=== PATIENT | female | born 1985 | race Hispanic/Latino ===

== ENCOUNTER 2022-08-28 07:20 | Day surgery (SDC) | payer BC ==
[2022-08-26 11:32] LABS: BASOPHILS % (AUTO) 0.7 % (0.0-5.0); EOSINOPHILS % (AUTO) 0.6 % (0.0-8.0); HEMATOCRIT 40.8 % (36-48); LYMPHOCYTES % (AUTO) 24.2 % (21.0-51.0); MEAN CORPUSCULAR HGB CONC 31.9 g/dL (32.0-36.0); MEAN CORPUSCULAR VOLUME 94.2 fL (79-99); MONOCYTES % (AUTO) 4.1 % (3.0-13.0); PLATELET COUNT (AUTO) 367 K/uL (130-400); RED BLOOD CELL COUNT(AUTO) 4.33 MIL/uL (4.00-5.50); RED CELL DISTRIBUTION WIDTH 13.3 % (11.0-15.5); WHITE BLOOD COUNT (AUTO) 10.2 K/uL (4.8-10.8)
[2022-08-26 11:37] VITALS: BP 111/61
[2022-08-28] VITALS (14 sets, daily range): BP systolic 78–101; BP diastolic 39–62
[~2022-08-28] VITALS: Ht 165.1 cm; Wt 73.9 kg
[~2022-08-28 07:20] MED LIST: BUPIVACAINE/PF 0.5% 10ML VIAL ONE; DEXAMETHASONE SOD PHOSPHATE 10MG/ML 1ML VIAL ONE; LIDOCAINE PF 100MG/5ML (2%) SYRINGE 5ML ONE; MIDAZOLAM HCL 1 MG/ML 2ML VIAL ONE; SUCCINYLCHOLINE 200MG/10ML SYR ONE
[2022-08-28] MEDS ORDERED: PROPOFOL 10 MG/ML 20ML VIAL IV ONE (07:22)
[2022-08-28] MEDS ORDERED: FENTANYL CITRATE PF 50 MCG/1 ML 2ML VIAL ONE ×2 (07:22→08:38)
[2022-08-28] MEDS ORDERED: ROCURONIUM 10MG/1ML SYR 10 MG/ML ML ONE (07:23)
[2022-08-28] MEDS ORDERED: LACTATED RINGERS 1000ML 1,000 ML IV ONE (07:28)
[2022-08-28] MEDS ORDERED: NEOSTIGMINE 5MG/5ML SYR IV ONE (07:31)
[2022-08-28] MEDS ORDERED: EPHEDRINE SULFATE 50 MG/ML AMPULE ONE (09:50)
[2022-08-28] MEDS ORDERED: MEPERIDINE-PF 25 MG/ML SYG ONE (09:59)
== END 2022-08-28 11:24 | disposition home or self-care (01) ==
LOC: DAH 07:20
PROVIDERS: ATTEND Obstetrics & Gynecology
DX: T83.39XA Other mechanical complication of intrauterine contraceptive device, initial encounter (principal); Z20.822 Contact with and (suspected) exposure to COVID-19; Z30.2 Encounter for sterilization; E66.01 Morbid (severe) obesity due to excess calories; Z83.3 Family history of diabetes mellitus; Z83.42 Family history of familial hypercholesterolemia; Z90.89 Acquired absence of other organs; Z98.890 Other specified postprocedural states; Z68.27 Body mass index [BMI] 27.0-27.9, adult; Y83.8 Other surgical procedures as the cause of abnormal reaction of the patient, or of later complication, without mention of misadventure at the time of the procedure
CPT/HCPCS: 84703; 85025; 87426; 36415; 58562; 58661; A6260; A4663; J7030; A4351; J7120; J3010 ×2; J0330; J1100; J2710; J3490 ×2; J2001; J2250; J2704; J2175; C1769 ×3; G0168; A4649 ×2; A4215; A4223; A4222; A4221